=== PATIENT | female | born 1985 | race African-American/Black ===

== ENCOUNTER 2019-02-19 12:53 | Emergency (ER) | payer OTHER ==
[~2019-02-19] VITALS: Ht 157.5 cm; Wt 61.2 kg
[~2019-02-19 12:53] MED LIST: FLEXERIL PO; PREDNISONE 20 M20 MG PO
[2019-02-19 13:17] LABS: URINE BILIRUBIN NEGATIVE (Negative); URINE BLOOD NEGATIVE (Negative); URINE CLARITY CLEAR; URINE COLOR YELLOW; URINE GLUCOSE-RANDOM* NEGATIVE (Negative); URINE KETONES NEGATIVE (Negative); URINE LEUKOCYTES-REFLEX NEGATIVE (Negative); URINE NITRITE-REFLEX NEGATIVE (Negative); URINE PROTEIN (DIPSTICK) NEGATIVE (Negative); URINE SPECIFIC GRAVITY <= 1.005 (1.005-1.035); URINE UROBILINOGEN 0.2 E.U./dl (0.2-1.0)
[2019-02-19 13:34] LABS: ABSOLUTE NEUTROPHILS 5.2 thou/uL (1.4-8.2); BASOPHILS 0.5 % (0.0-2.0); HEMOGLOBIN 13.6 gm/dL (12.0-15.0); LYMPHOCYTES 25.8 % (24.0-44.0); MCH 31.4 pg (26.0-34.0); MCHC 34.1 g/dL (28.0-37.0); MONOCYTES 6.2 % (1.0-8.0); PLATELET COUNT 272 thou/uL (150-400); POLYS 66.5 % (36.0-66.0); RBC 4.35 mil/uL (4.20-5.00); RDW 14.9 % (10.5-14.5); WBC 7.8 thou/uL (4.0-11.0)
[2019-02-19 13:39] LABS: CALCIUM 9.6 mg/dL (8.5-10.1); CREATININE 0.9 mg/dL (0.6-1.0); POTASSIUM 3.8 mmol/L (3.5-5.1)
[2019-02-19 13:45] LABS: ALBUMIN 3.5 g/dL (3.4-5.0); TOTAL BILIRUBIN 0.3 mg/dL (<0.1-1.0); TOTAL PROTEIN 7.5 g/dL (6.4-8.2)
[2019-02-19] MEDS ORDERED: PROTONIX40 M1 PO (13:58)
[2019-02-19] MEDS ORDERED: CARAFATE 1 GM TA1 G1 PO (13:58)
[2019-02-19] MEDS ORDERED: ULTRAM 50MG TAB50 MG PO (14:28)
[2019-02-19] MEDS ORDERED: ZOFRAN ODT4 MG PO (14:28)
[2019-02-19 14:44] VITALS: BP 110/84
== END 2019-02-19 14:45 | disposition home or self-care (01) ==
LOC: ER 12:53
PROVIDERS: Emergency Medicine
DX: R10.12 Left upper quadrant pain (principal); Z90.721 Acquired absence of ovaries, unilateral; Z98.890 Other specified postprocedural states; F17.210 Nicotine dependence, cigarettes, uncomplicated